=== PATIENT | male | born 1955 | race Caucasian/White ===

== ENCOUNTER 2018-12-24 08:18 | Emergency (ER) | payer MEDICAID, OTHER ==
[2018-12-24] MEDS: ACETAMINOPHEN 325 MG TAB PO (08:31)
== END 2018-12-24 09:46 | disposition home or self-care (01) ==
LOC: E/R 08:18
DX: S09.90XA Unspecified injury of head, initial encounter (principal); S16.1XXA Strain of muscle, fascia and tendon at neck level, initial encounter; I10 Essential (primary) hypertension; S29.9XXA Unspecified injury of thorax, initial encounter; R91.1 Solitary pulmonary nodule; R51 Headache; V49.49XA Driver injured in collision with other motor vehicles in traffic accident, initial encounter
CPT/HCPCS: 70450; 71045; 72125; 93005; 99285-25